=== PATIENT | male | born 1970 | race African-American/Black ===

== ENCOUNTER 2022-02-23 17:57 | Inpatient (IN) | payer OTHER ==
[2022-02-23 21:47] VITALS: BMI 20.7
[2022-02-24] MEDS ORDERED: MAGNESIUM HYDROX 2400MG/30ML ORAL SUSPENSION 30 ML CUP PO PRN (00:58)
[2022-02-24] MEDS ORDERED: DICYCLOMINE HCL 10 MG CAPSULE PO PRN (00:58)
[2022-02-24] MEDS ORDERED: IBUPROFEN 400 MG TABLET (FP) PO PRN (00:58)
[2022-02-24] MEDS ORDERED: LOPERAMIDE HCL 2 MG CAPSULE PO PRN (00:58)
[2022-02-24] MEDS ORDERED: cloNIDine HCL 0.1 MG TABLET PO PRN (00:58)
[2022-02-24] MEDS ORDERED: ONDANSETRON *ODT* 4 MG TABLET SL PRN (00:58)
[2022-02-24] MEDS ORDERED: MAG HYDROX/AL HYDROX/SIMETH 30 ML UNIT-DOSE CUP PO PRN (00:58)
[2022-02-24] MEDS ORDERED: ACETAMINOPHEN 325 MG TABLET (FP) PO PRN ×2 (00:58)
[2022-02-24] MEDS ORDERED: BISMUTH SUBSALICYLATE 524 MG/30 ML PO PRN (00:58)
[2022-02-24] MEDS ORDERED: chlordiazePOXIDE HCL 25 MG CAPSULE PO PRN (00:58)
[2022-02-24] MEDS ORDERED: BENZOCAINE/MENTHOL (CHLORASEPTIC ) LOZENGE MM PRN (00:58)
[2022-02-24] MEDS ORDERED: MAGNESIUM CITRATE 300 ML BOTTLE PO PRN (00:58)
[2022-02-24] MEDS ORDERED: IBUPROFEN 600 MG TABLET (FP) PO PRN (00:58)
[2022-02-24] MEDS ORDERED: methaDONE HCL 10 MG TABLET (FOR DETOX USE ONLY) PO ONE (00:58)
[2022-02-24] MEDS: METHOCARBAMOL 500 MG TABLET PO PRN (02:47)
[2022-02-24] MEDS: chlordiazePOXIDE HCL 25 MG CAPSULE PO SCH ×4 (06:17→22:52)
[2022-02-24] MEDS: NICOTINE 10 MG CARTRIDGE (INHALER) IH PRN ×2 (10:16→22:55)
[2022-02-24] MEDS: NICOTINE 14 MG/24 HOURS TOPICAL PATCH TD SCH (10:17)
[2022-02-24] MEDS: PRENATAL VITAMINS W/ FOLIC ACID TABLET (FP) PO SCH (10:17)
[2022-02-24 15:16] LABS: HEMATOCRIT 44.3 % (35.4-49); HEMOGLOBIN 14.7 GM/dL (11.7-16.9); MCH 32.6 pg (25.7-33.7); MCHC 33.3 g/dl (32.0-35.9); MEAN CELL VOLUME 97.9 fl (80-96); MEAN PLT VOLUME 8.6 fl (7.5-11.1); PLATELET COUNT 230 10^3/uL (134-434); RBC 4.52 M/mm3 (4.00-5.60); RDW 13.2 % (11.9-15.9); WHITE BLOOD COUNT 7.9 K/mm3 (4.0-10.0)
[2022-02-24 15:22] LABS: CALCIUM 8.9 mg/dL (8.5-10.1)
[2022-02-24 15:23] LABS: ALBUMIN 3.7 g/dl (3.4-5.0); BLOOD UREA NITROGEN 29.3 mg/dL (7-18)
[2022-02-24 15:27] LABS: BILIRUBIN,TOTAL 0.5 mg/dL (0.2-1)
[2022-02-24 15:28] LABS: TOT PROT 7.6 g/dl (6.4-8.2)
[2022-02-24] MEDS: THIAMINE HCL 100 MG TABLET (FP) PO SCH (22:52)
[2022-02-24] MEDS: MELATONIN 5 MG TABLETS PO SCH (22:52)
[2022-02-25] MEDS: chlordiazePOXIDE HCL 25 MG CAPSULE PO SCH ×4 (06:07→23:12)
[2022-02-25] MEDS ORDERED: methaDONE HCL 10 MG TABLET (FOR DETOX USE ONLY) ONE (08:54)
[2022-02-25] MEDS: PRENATAL VITAMINS W/ FOLIC ACID TABLET (FP) PO SCH (10:15)
[2022-02-25] MEDS: NICOTINE 14 MG/24 HOURS TOPICAL PATCH TD SCH (10:15)
[2022-02-25] MEDS: MELATONIN 5 MG TABLETS PO SCH (23:13)
[2022-02-25] MEDS: THIAMINE HCL 100 MG TABLET (FP) PO SCH (23:13)
[2022-02-26] MEDS ORDERED: chlordiazePOXIDE HCL 10 MG CAPSULE PO PRN
[2022-02-26] MEDS: chlordiazePOXIDE HCL 10 MG CAPSULE PO SCH ×4 (08:23→22:29)
[2022-02-26] MEDS ORDERED: methaDONE HCL 10 MG TABLET (FOR DETOX USE ONLY) PO ONE (10:00)
[2022-02-26] MEDS: NICOTINE 14 MG/24 HOURS TOPICAL PATCH TD SCH (10:19)
[2022-02-26] MEDS: PRENATAL VITAMINS W/ FOLIC ACID TABLET (FP) PO SCH (10:19)
[2022-02-26] MEDS: MELATONIN 5 MG TABLETS PO SCH (22:29)
[2022-02-26] MEDS: THIAMINE HCL 100 MG TABLET (FP) PO SCH (22:29)
[2022-02-27] MEDS ORDERED: chlordiazePOXIDE HCL 10 MG CAPSULE PO SCH (05:00)
[2022-02-27 06:45] VITALS: RESP 18
[2022-02-27 09:00] VITALS: BP 155/83; PULSE 98; TEMP 98.7
[2022-02-27] MEDS ORDERED: methaDONE HCL 10 MG TABLET (FOR DETOX USE ONLY) ONE (09:13)
[2022-02-27] MEDS: PRENATAL VITAMINS W/ FOLIC ACID TABLET (FP) PO SCH (10:08)
[2022-02-27] MEDS: NICOTINE 14 MG/24 HOURS TOPICAL PATCH TD SCH (10:09)
[2022-02-27] MEDS: METHOCARBAMOL 500 MG TABLET PO PRN (10:09)
[2022-02-27] MEDS ORDERED: ALBUTEROL SO4 HFA INHALER IH PRN (10:54)
[2022-02-28] MEDS ORDERED: chlordiazePOXIDE HCL 10 MG CAPSULE PO ONE (05:00)
[2022-02-28] MEDS ORDERED: methaDONE HCL 10 MG TABLET (FOR DETOX USE ONLY) PO ONE (10:00)
== END 2022-02-27 11:18 | disposition home or self-care (01) | DRG 773 ==
LOC: YASAS 17:57 → Y3N 02-24 01:32
PROVIDERS: ADMIT Surgery; ATTEND Surgery
PROC: HZ2ZZZZ Detoxification Services for Substance Abuse Treatment (ICD-10-PCS; principal; 2022-02-24)
DX: F11.23 Opioid dependence with withdrawal (principal); F10.230 Alcohol dependence with withdrawal, uncomplicated; F14.20 Cocaine dependence, uncomplicated; F17.210 Nicotine dependence, cigarettes, uncomplicated; J45.909 Unspecified asthma, uncomplicated; Z91.013 Allergy to seafood; Z59.00 Homelessness unspecified
CPT/HCPCS: 36415; 80053; 84520; 85027; 86780; 93005; 93010; C9803-CS; J0735; U0003; U0005

== ENCOUNTER 2024-07-19 14:37 | Inpatient (IN) | payer OTHER ==
[2024-07-19 15:07] VITALS: BMI 21.1
[2024-07-19] MEDS ORDERED: BENZOCAINE/MENTHOL (CHLORASEPTIC ) LOZENGE MM PRN (16:09)
[2024-07-19] MEDS ORDERED: BENZONATATE 200 MG CAPSULE PO PRN (16:09)
[2024-07-19] MEDS ORDERED: NALOXONE (NARCAN) HCL 4 MG/0.1 ML SPRAY NS PRN (16:09)
[2024-07-19] MEDS ORDERED: DICYCLOMINE HCL 10 MG CAPSULE PO PRN (16:09)
[2024-07-19] MEDS ORDERED: LOPERAMIDE HCL 2 MG CAPSULE PO PRN (16:09)
[2024-07-19] MEDS ORDERED: MAG HYDROX/AL HYDROX/SIMETH 30 ML UNIT-DOSE CUP PO PRN (16:09)
[2024-07-19] MEDS ORDERED: NICOTINE POLACRILEX 2 MG LOZENGE BC PRN (16:09)
[2024-07-19] MEDS ORDERED: IBUPROFEN 400 MG TABLET (FP) PO PRN (16:09)
[2024-07-19] MEDS ORDERED: ACETAMINOPHEN 325 MG TABLET (FP) PO PRN (16:09)
[2024-07-19] MEDS ORDERED: POLYETHYLENE GLYCOL (HEALTHYLAX) 3350 17 GM PACKET PO PRN (16:09)
[2024-07-19] MEDS ORDERED: MAGNESIUM HYDROX 2400MG/30ML ORAL SUSPENSION 30 ML CUP PO PRN (16:09)
[2024-07-19] MEDS ORDERED: BISMUTH SUBSALICYLATE 524 MG/30 ML PO PRN (16:09)
[2024-07-19] MEDS ORDERED: guaiFENesin 600 MG TABLET.ER (FP) PO PRN (16:09)
[2024-07-19] MEDS ORDERED: ONDANSETRON *ODT* 4 MG TABLET SL PRN (16:09)
[2024-07-19] MEDS ORDERED: ALBUTEROL SO4 HFA INHALER IH PRN (16:15)
[2024-07-19] MEDS ORDERED: cloNIDine HCL 0.1 MG TABLET ONE (17:18)
[2024-07-19] MEDS: cloNIDine HCL 0.1 MG TABLET PO SCH (17:30)
[2024-07-19] MEDS ORDERED: methaDONE HCL 10 MG TABLET PO PRN (18:10)
[2024-07-19] MEDS: methaDONE HCL 10 MG TABLET PO ONE (20:40)
[2024-07-19] MEDS: MELATONIN 5 MG TABLETS PO SCH (21:40)
[2024-07-19] MEDS: THIAMINE 100 MG TABLET PO SCH (21:40)
[2024-07-20] MEDS: PRENATAL VITAMINS W/ FOLIC ACID TABLET (FP) PO SCH (10:59)
[2024-07-20] MEDS: NICOTINE 21 MG/24 HOURS TOPICAL PATCH TD SCH (10:59)
[2024-07-20 11:07] LABS: HEMATOCRIT 41.3 % (35.4-49); HEMOGLOBIN 13.1 GM/dL (11.7-16.9); MCH 29.8 pg (25.7-33.7); MCHC 31.6 g/dl (32.0-35.9); MEAN CELL VOLUME 94.1 fl (80-96); MEAN PLT VOLUME 8.2 fl (7.5-11.1); PLATELET COUNT 304 10^3/uL (134-434); RBC 4.39 M/mm3 (4.00-5.60); RDW 14.4 % (11.9-15.9); WHITE BLOOD COUNT 5.9 K/mm3 (4.0-10.0)
[2024-07-20 11:10] LABS: CHLORIDE 104 mmol/L (98-107); POTASSIUM 3.3 mmol/L (3.5-5.1); SODIUM 137 mmol/L (136-145)
[2024-07-20 11:14] LABS: ALBUMIN 3.1 g/dl (3.4-5.0); ANION GAP 9 mmol/L (4-13); BLOOD UREA NITROGEN 13.6 mg/dL (7-18); CO2 24 mmol/L (21-32)
[2024-07-20 11:15] LABS: GLUCOSE,RANDOM 140 mg/dL (74-106)
[2024-07-20 11:17] LABS: SGPT/ALT 13 U/L (13-61)
[2024-07-20 11:18] LABS: CREATININE 0.8 mg/dL (0.55-1.3); SGOT/AST 9 U/L (15-37)
[2024-07-20 11:19] LABS: BILIRUBIN,TOTAL 0.3 mg/dL (0.2-1); TOT PROT 6.8 g/dl (6.4-8.2)
[2024-07-20 11:20] LABS: ALK PHOS 58 U/L (45-117)
[2024-07-20] MEDS: POTASSIUM CHLORIDE ORAL LIQUID 20 MEQ/15 ML PO ONE ×3 (15:58→22:37)
[2024-07-20] MEDS: IBUPROFEN 600 MG TABLET (FP) PO PRN (16:01)
[2024-07-20] MEDS: hydrOXYzine PAMOATE 25 MG CAPSULE (FP) PO PRN (21:53)
[2024-07-20] MEDS: METHOCARBAMOL 500 MG TABLET PO PRN (21:53)
[2024-07-21] MEDS ORDERED: cloNIDine HCL 0.1 MG TABLET PO PRN
[2024-07-21] MEDS: methaDONE 40 MG, methaDONE 10 MG PO ONE (09:09)
[2024-07-21] MEDS: NICOTINE POLACRILEX 2 MG GUM BUC PRN (21:47)
[2024-07-23] MEDS: NALOXONE (NYS OPIOID OVERDOSE PROGRAM) 4 MG/0.1 ML SPRAY NS SCH (10:03)
[2024-07-23] MEDS: methaDONE 40 MG, methaDONE 20 MG PO ONE (10:11)
[2024-07-24 06:35] VITALS: RESP 16
[2024-07-24 09:19] VITALS: BP 150/87; PULSE 68; TEMP 98.9
== END 2024-07-24 10:50 | disposition home or self-care (01) | DRG 773 ==
LOC: YASAS 14:37 → Y6N 17:28
PROVIDERS: ADMIT Allergy & Immunology; ATTEND Surgery
PROC: HZ2ZZZZ Detoxification Services for Substance Abuse Treatment (ICD-10-PCS; principal; 2024-07-19)
DX: F11.23 Opioid dependence with withdrawal (principal); F14.20 Cocaine dependence, uncomplicated; F17.210 Nicotine dependence, cigarettes, uncomplicated; F41.9 Anxiety disorder, unspecified; E87.6 Hypokalemia; J45.20 Mild intermittent asthma, uncomplicated; R73.9 Hyperglycemia, unspecified; Z59.00 Homelessness unspecified
CPT/HCPCS: 0241U-QW; 36415; 80053; 80307; 83036; 84132; 85027; 86780; 93005; 93010

== ENCOUNTER 2024-10-16 14:32 | Inpatient (IN) | payer OTHER ==
[2024-10-16] MEDS ORDERED: DICYCLOMINE HCL 10 MG CAPSULE PO PRN (15:30)
[2024-10-16] MEDS ORDERED: NICOTINE POLACRILEX 2 MG GUM BUC PRN (15:30)
[2024-10-16] MEDS ORDERED: POLYETHYLENE GLYCOL (HEALTHYLAX) 3350 17 GM PACKET PO PRN (15:30)
[2024-10-16] MEDS ORDERED: BISMUTH SUBSALICYLATE 262 MG/15 ML BTL PO PRN (15:30)
[2024-10-16] MEDS ORDERED: NALOXONE (NARCAN) HCL 4 MG/0.1 ML SPRAY NS PRN (15:30)
[2024-10-16] MEDS ORDERED: LOPERAMIDE HCL 2 MG CAPSULE PO PRN (15:30)
[2024-10-16] MEDS ORDERED: guaiFENesin 600 MG TABLET.ER (FP) PO PRN (15:30)
[2024-10-16] MEDS ORDERED: BENZONATATE 200 MG CAPSULE PO PRN (15:30)
[2024-10-16] MEDS ORDERED: BENZOCAINE/MENTHOL (CHLORASEPTIC ) LOZENGE MM PRN (15:30)
[2024-10-16] MEDS ORDERED: ONDANSETRON *ODT* 4 MG TABLET SL PRN (15:30)
[2024-10-16] MEDS ORDERED: chlordiazePOXIDE HCL 25 MG CAPSULE PO PRN (15:30)
[2024-10-16] MEDS ORDERED: ACETAMINOPHEN 325 MG TABLET (FP) PO PRN (15:30)
[2024-10-16] MEDS ORDERED: IBUPROFEN 400 MG TABLET (FP) PO PRN (15:30)
[2024-10-16] MEDS ORDERED: MAGNESIUM HYDROX 2400MG/30ML ORAL SUSPENSION 30 ML CUP PO PRN (15:30)
[2024-10-16 15:31] VITALS: BMI 22.7
[2024-10-16] MEDS ORDERED: HYDROCHLOROTHIAZIDE 12.5 MG CAPSULE (FP) ONE (15:34)
[2024-10-16] MEDS ORDERED: methaDONE HCL 10 MG TABLET (FOR DETOX USE ONLY) ONE (15:34)
[2024-10-16] MEDS ORDERED: amLODIPine BESYLATE 5 MG TABLET (FP) ONE (15:34)
[2024-10-16] MEDS: methaDONE HCL 10 MG TABLET (FOR DETOX USE ONLY) PO ONE (15:53)
[2024-10-16] MEDS: amLODIPine BESYLATE 10 MG TABLET (FP) PO SCH (15:54)
[2024-10-16] MEDS: HYDROCHLOROTHIAZIDE 25 MG TABLET (FP) PO SCH (15:54)
[2024-10-16] MEDS: TRIMETHOBENZAMIDE HCL 200MG/2ML INJ IM ONE (15:54)
[2024-10-16] MEDS ORDERED: methaDONE HCL 10 MG TABLET PO PRN (17:30)
[2024-10-16] MEDS: chlordiazePOXIDE HCL 25 MG CAPSULE PO SCH ×2 (18:36→18:43)
[2024-10-16] MEDS: cloNIDine HCL 0.1 MG TABLET PO SCH (18:36)
[2024-10-16] MEDS: MELATONIN 5 MG TABLETS PO SCH (22:59)
[2024-10-16] MEDS: THIAMINE 100 MG TABLET PO SCH (22:59)
[2024-10-17] MEDS: PRENATAL VITAMINS W/ FOLIC ACID TABLET (FP) PO SCH (10:26)
[2024-10-17 11:34] LABS: HEMATOCRIT 38.4 % (35.4-49); HEMOGLOBIN 12.4 GM/dL (11.7-16.9); MCH 30.5 pg (25.7-33.7); MCHC 32.2 g/dl (32.0-35.9); MEAN CELL VOLUME 94.8 fl (80-96); MEAN PLT VOLUME 8.2 fl (7.5-11.1); PLATELET COUNT 192 10^3/uL (134-434); RBC 4.06 M/mm3 (4.00-5.60); RDW 14.9 % (11.9-15.9); WHITE BLOOD COUNT 6.2 K/mm3 (4.0-10.0)
[2024-10-17 11:37] LABS: CHLORIDE 104 mmol/L (98-107); POTASSIUM 3.7 mmol/L (3.5-5.1); SODIUM 137 mmol/L (136-145)
[2024-10-17 11:45] LABS: CALCIUM 9.1 mg/dL (8.5-10.1)
[2024-10-17 11:46] LABS: ANION GAP 6 mmol/L (4-13); BLOOD UREA NITROGEN 16.7 mg/dL (7-18); CO2 27 mmol/L (21-32); GLUCOSE,RANDOM 95 mg/dL (74-106)
[2024-10-17 11:49] LABS: CREATININE 0.8 mg/dL (0.55-1.3); SGOT/AST 9 U/L (15-37); SGPT/ALT 12 U/L (13-61)
[2024-10-17 11:51] LABS: BILIRUBIN,TOTAL 0.7 mg/dL (0.2-1); TOT PROT 6.6 g/dl (6.4-8.2)
[2024-10-17 11:52] LABS: ALK PHOS 67 U/L (45-117)
[2024-10-17] MEDS ORDERED: ALBUTEROL SO4 HFA INHALER IH PRN (17:19)
[2024-10-17] MEDS: METHOCARBAMOL 500 MG TABLET PO PRN (22:10)
[2024-10-17] MEDS: hydrOXYzine PAMOATE 25 MG CAPSULE (FP) PO PRN (22:10)
[2024-10-18] MEDS ORDERED: cloNIDine HCL 0.1 MG TABLET PO PRN
[2024-10-18] MEDS: chlordiazePOXIDE HCL 25 MG CAPSULE PO SCH (05:27)
[2024-10-18] MEDS: methaDONE 40 MG, methaDONE 10 MG PO ONE (10:11)
[2024-10-18] MEDS: IBUPROFEN 600 MG TABLET (FP) PO PRN (17:30)
[2024-10-18] MEDS: MIRTAZAPINE 15 MG TABLET (FP) PO SCH (22:16)
[2024-10-19] MEDS ORDERED: chlordiazePOXIDE HCL 10 MG CAPSULE PO PRN
[2024-10-19] MEDS: chlordiazePOXIDE HCL 10 MG CAPSULE PO SCH (05:55)
[2024-10-20] MEDS: chlordiazePOXIDE HCL 10 MG CAPSULE PO SCH (04:40)
[2024-10-20] MEDS ORDERED: methaDONE 40 MG, methaDONE 20 MG PO ONE (10:00)
[2024-10-20] MEDS: methaDONE HCL 40 MG DISPERSABLE TABLET PO ONE (12:14)
[2024-10-20] MEDS: HYDROCHLOROTHIAZIDE 25 MG TABLET (FP) PO ONE (15:47)
[2024-10-20] MEDS: MAG HYDROX/AL HYDROX/SIMETH 30 ML UNIT-DOSE CUP PO PRN (22:21)
[2024-10-21] MEDS: chlordiazePOXIDE HCL 10 MG CAPSULE PO ONE (05:29)
[2024-10-21] MEDS ORDERED: methaDONE HCL 10 MG TABLET PO ONE (09:10)
[2024-10-21] MEDS: HYDROCHLOROTHIAZIDE 25 MG TABLET (FP) PO SCH (09:50)
[2024-10-22] MEDS: methaDONE HCL 10 MG TABLET PO ONE (15:30)
[2024-10-22] MEDS: P-EPHED 60MG/TRIPROLIDI 2.5MG TABLET PO PRN (18:05)
[2024-10-23] MEDS ORDERED: methaDONE HCL 10 MG TABLET PO SCH (08:00)
[2024-10-23 08:52] VITALS: BP 136/89; PULSE 87; RESP 18; TEMP 97.1
[2024-10-23] MEDS ORDERED: methaDONE HCL 10 MG TABLET PO ONE (09:45)
[2024-10-23] MEDS: methaDONE 40 MG, methaDONE 10 MG PO ONE ×2 (10:00→10:10)
[2024-10-24] MEDS ORDERED: methaDONE 40 MG, methaDONE 10 MG PO SCH (06:00)
== END 2024-10-23 11:53 | disposition home or self-care (01) | DRG 773 ==
LOC: YASAS 14:32 → Y3N 16:34
PROVIDERS: ADMIT Allergy & Immunology; ATTEND Allergy & Immunology
PROC: HZ2ZZZZ Detoxification Services for Substance Abuse Treatment (ICD-10-PCS; principal; 2024-10-16)
DX: F11.23 Opioid dependence with withdrawal (principal); F10.230 Alcohol dependence with withdrawal, uncomplicated; F14.20 Cocaine dependence, uncomplicated; F17.210 Nicotine dependence, cigarettes, uncomplicated; G47.00 Insomnia, unspecified; I10 Essential (primary) hypertension; J45.20 Mild intermittent asthma, uncomplicated; R11.2 Nausea with vomiting, unspecified
CPT/HCPCS: 0241U-QW; 36415; 80053; 80305; 80307; 85027; 86780; 87811; 93005; 93010